=== PATIENT | male | born 2000 | race Caucasian/White ===

== ENCOUNTER 2018-06-10 18:02 | Emergency (ER) | payer BC, OTHER, SELFPAY ==
[2018-06-10] MEDS ORDERED: Lidocaine 1% PF 5 ML VIAL ONE (18:16)
[2018-06-10] MEDS ORDERED: Bacitracin Zinc 1 Packet ONE (18:49)
== END 2018-06-10 18:59 | disposition home or self-care (01) ==
LOC: SCSER 18:02
DX: S61.210A Laceration without foreign body of right index finger without damage to nail, initial encounter (principal); W26.0XXA Contact with knife, initial encounter
CPT/HCPCS: 12001; J2001